=== PATIENT | male | born 1940 | race African-American/Black ===

== ENCOUNTER 2017-09-06 13:20 | Observation (INO) | payer MEDICARE, OTHER ==
[2017-09-06] MEDS ORDERED: NORMAL SALINE 1000 ML 1,000 ML IV ONE (13:58)
--- NOTE | 2017-09-06 13:59 | ER Document Report ---
ED Medical Screen (RME) - General Chief Complaint: Chest Pain > 30 Stated Complaint: CHEST PAIN Time Seen by Provider: 09/06/17 13:57 Notes: Patient states she was standing in his garage stating when he had the sudden onset of severe headache as well as chest pain. He also felt dizzy. He denies passing out or hitting his head. TRAVEL OUTSIDE OF THE [place] IN LAST 30 DAYS: No - Related Data Allergies/Adverse Reactions: No Known Allergies Allergy (Verified 09/06/17 13:21) Home Medications: Current Home Medications Cholecalciferol (Vitamin D3) [Vitamin D3 1000 Unit Tablet] 1 tab PO DAILY [History] Omeprazole Magnesium [Prilosec Otc] 1 tab PO DAILY 09/06/17 [History] Past Medical History - Social History Chew tobacco use (# tins/day): No Frequency of alcohol use: None Drug Abuse: None - Past Medical History Cardiac Medical History: Reports: Hx Hypertension - MEDICATED Denies: Hx Heart Attack Pulmonary Medical History: Denies: Hx Asthma Neurological Medical History: Denies: Hx Cerebrovascular Accident, Hx Seizures Renal/ Medical History: Reports: Hx Kidney Stones. Denies: Hx Peritoneal Dialysis GI Medical History: Reports: Hx Hiatal Hernia. Denies: Hx Hepatitis, Hx Ulcer Musculoskeltal Medical History: Reports Hx Arthritis Infectious Medical History: Denies: Hx Hepatitis Past Surgical History: Reports: Hx Appendectomy. Denies: Hx Open Heart Surgery , Hx Pacemaker - Immunizations Immunizations up to date: Yes Hx Diphtheria, Pertussis, Tetanus Vaccination: Yes Physical Exam - Vital signs Vitals: Temp Pulse Resp BP Pulse Ox 97.8 F 65 16 188/80 H 97 09/06/17 13:38 09/06/17 13:38 09/06/17 13:38 09/06/17 13:38 09/06/17 13:38 Course - Vital Signs Vital signs: Temp Pulse Resp BP Pulse Ox 97.8 F 65 16 188/80 H 97 09/06/17 13:38 09/06/17 13:38 09/06/17 13:38 09/06/17 13:38 09/06/17 13:38
--- NOTE | 2017-09-06 14:33 | RADIOLOGY REPORT (SQ) ---
EXAM DESCRIPTION: CT HEAD WITHOUT COMPLETED DATE/TIME: 09/06/2017 2:22 pm REASON FOR STUDY: bergeron COMPARISON: None. TECHNIQUE: Axial images acquired through the brain without intravenous contrast. Images reviewed wi th bone, brain and subdural windows. Images stored on PACS. All CT scanners at this facility use dose modulation, iterative reconstruction, and/or weight based d osing when appropriate to reduce radiation dose to as low as reasonably achievable (ALARA). [facility]: Dose Right [facility]: CareDose [facility]: Dose Right [facility]: Teradose 4D [facility]: [employer] RADIATION DOSE: CT Rad equipment meets quality standard of care and radiation dose reduction techniq ues were employed. CTDIvol: 64.6 mGy. DLP: 1163 mGy-cm. mGy. LIMITATIONS: None. FINDINGS: VENTRICLES: Normal size and contour. CEREBRUM: No masses. No hemorrhage. No midline shift. No evidence for acute infarction. Normal gra y/white matter differentiation. No areas of low density in the white matter. CEREBELLUM: No masses. No hemorrhage. No alteration of density. No evidence for acute infarction. EXTRAAXIAL SPACES: No fluid collections. No masses. ORBITS AND GLOBE: No intra- or extraconal masses. Normal contour of globe without masses. CALVARIUM: No fracture. PARANASAL SINUSES: No fluid or mucosal thickening. SOFT TISSUES: No mass or hematoma. OTHER: Heavily calcified parasellar carotid arteries IMPRESSION: NORMAL BRAIN CT WITHOUT CONTRAST. EVIDENCE OF ACUTE STROKE: NO. COMMENT: Quality ID # [id number]: Final reports with documentation of one or more dose reduction techniques (e.g., Automated exposure control, adjustment of the mA and/or kV according to patient size, use of iterative reconstruction technique) TECHNICAL DOCUMENTATION: JOB ID: [id number] [employer]- All Rights Reserved
--- NOTE | 2017-09-06 15:15 | EKG REPORT ---
SEVERITY:- ABNORMAL ECG - SINUS RHYTHM PROBABLE LEFT ATRIAL ABNORMALITY ABNORMAL T, CONSIDER ISCHEMIA, ANT-LAT LEADS : Confirmed by: Silverio Gallegos MD 06-Sep-2017 15:14:24
[2017-09-06 15:46] LABS: ABSOLUTE BASOPHILS # (AUTO) 0.1 10^3/uL (0.0-0.2); ABSOLUTE LYMPHOCYTES (AUTO) 1.3 10^3/uL (0.5-4.7); ABSOLUTE MONOCYTES (AUTO) 0.3 10^3/uL (0.1-1.4); ABSOLUTE NEUT (AUTO) 6.6 10^3/uL (1.7-8.2); BASOPHILS % (AUTO) 0.9 % (0-2); EOSINOPHILS % (AUTO) 0.6 % (0-6); HEMATOCRIT 41.1 % (37.9-51.0); HEMOGLOBIN 13.7 g/dL (13.5-17.0); LYMPHOCYTES % (AUTO) 15.9 % (13-45); MEAN CORPUSCULAR HEMOGLOBIN 30.1 pg (27.0-33.4); MEAN CORPUSCULAR HGB CONC 33.2 g/dL (32.0-36.0); MEAN CORPUSCULAR VOLUME 91 fl (80-97); RED BLOOD COUNT 4.53 10^6/uL (4.35-5.55); RED CELL DISTRIBUTION WIDTH 13.5 % (11.5-14.0); SEGMENTED NEUTROPHILS % (AUTO) 78.6 % (42-78); WHITE BLOOD COUNT 8.3 10^3/uL (4.0-10.5)
[2017-09-06 16:06] LABS: ALANINE AMINOTRANSFERASE 25 U/L (21-72); ALBUMIN 4.9 g/dL (3.5-5.0); ALKALINE PHOSPHATASE 88 U/L (38-126); ANION GAP 15 (5-19); ASPARTATE AMINO TRANSFERASE 19 U/L (17-59); BILIRUBIN,DIRECT 0.2 mg/dL (0.0-0.4); BLOOD UREA NITROGEN 15 mg/dL (7-20); CALCIUM 10.1 mg/dL (8.4-10.2); CARBON DIOXIDE 26 mmol/L (22-30); CHLORIDE 106 mmol/L (98-107); CREATININE RESULT 1.09 mg/dL (0.52-1.25); GLUCOSE 158 mg/dL (75-110); POTASSIUM 4.1 mmol/L (3.6-5.0); SODIUM 147.2 mmol/L (137-145); TOTAL PROTEIN 8.1 g/dL (6.3-8.2)
[2017-09-06] MEDS ORDERED: DIAZEPAM INJ 10 MG/2 ML DISP.SYRIN IV ONE (16:12)
--- NOTE | 2017-09-06 16:25 | ER Document Report ---
ED General - General Chief Complaint: Chest Pain > 30 Stated Complaint: CHEST PAIN Time Seen by Provider: 09/06/17 13:57 Mode of Arrival: Ambulatory Information source: Patient TRAVEL OUTSIDE OF THE [place] IN LAST 30 DAYS: No - HPI Patient complains to provider of: Head pain Onset: Just prior to arrival Onset/Duration: Sudden Quality of pain: Sharp Severity: Moderate Associated symptoms: Other - Dizziness Exacerbated by: Denies Relieved by: Denies Similar symptoms previously: No Recently seen / treated by doctor: No Notes: This 76-year-old -Italian male presents emergency department brought in by his for evaluation. She states that he was in his garage looking in the storage been for a tool when he got head pain on the right posterior part of his head and it began to swell. He states he did get dizzy at that time and did kneel down. He states he crawled into the house and rested for a few moments. He denies loss of consciousness. He states at that time his systolic blood pressure was over 200. He states normally he is normotensive when he takes his blood pressure medications. Not skipped any medications. He states the last few days it has been in the 180s. Patient quit tobacco in 1982 at the time he had a vocal cord surgery to remove what sounds like a polyp. States he also has a history of acid reflux for years. He also has hypercholesterolemia and had partial parathyroidectomy. - Related Data Allergies/Adverse Reactions: No Known Allergies Allergy (Verified 09/06/17 13:21) Home Medications: Current Home Medications Alprazolam [Xanax 0.5 mg Tablet] 0.5 mg PO 09/06/17 [History] Carvedilol [Coreg 25 mg Tablet] 25 mg PO Q12 09/06/17 [History] Cholecalciferol (Vitamin D3) [Vitamin D3 1000 Unit Tablet] 1,000 unit PO [History] Furosemide [Lasix 20 mg Tablet] 10 mg PO DAILY 09/06/17 [History] Latanoprost [Xalatan 0.005% Oph Soln 2.5 ml] 1 drop QHS 09/06/17 [History] Omeprazole 20 mg PO DAILY 09/06/17 [History] Pravastatin Sodium [Pravachol] 20 mg PO QHS 09/06/17 [History] Telmisartan [Micardis 80 mg Tablet] 80 mg PO DAILY 09/06/17 [History] Past Medical History - General Information source: Patient, Relative - Social History Smoking Status: Former Smoker Chew tobacco use (# tins/day): No Frequency of alcohol use: None Drug Abuse: None Lives with: Family Family History: CAD, Hyperlipidemia, Hypertension Patient has suicidal ideation: No Patient has homicidal ideation: No - Past Medical History Cardiac Medical History: Reports: Hx Hypertension - MEDICATED Denies: Hx Heart Attack Pulmonary Medical History: Denies: Hx Asthma Neurological Medical History: Denies: Hx Cerebrovascular Accident, Hx Seizures Endocrine Medical History: Reports: None Renal/ Medical History: Reports: Hx Kidney Stones. Denies: Hx Peritoneal Dialysis Malignancy Medical History: Reports None GI Medical History: Reports: Hx Gastroesophageal Reflux Disease, Hx Hiatal Hernia. Denies: Hx Hepatitis, Hx Ulcer Musculoskeltal Medical History: Reports Hx Arthritis Skin Medical History: Reports None Psychiatric Medical History: Reports: None Infectious Medical History: Denies: Hx Hepatitis Past Surgical History: Reports: Hx Appendectomy. Denies: Hx Open Heart Surgery , Hx Pacemaker - Immunizations Immunizations up to date: Yes Hx Diphtheria, Pertussis, Tetanus Vaccination: Yes Review of Systems - Review of Systems EENT: Double vision Cardiovascular: Other - Adamantly denies chest pain although it is noted in the triage note Respiratory: No symptoms reported Gastrointestinal: No symptoms reported Genitourinary: No symptoms reported Male Genitourinary: No symptoms reported Skin: No symptoms reported Hematologic/Lymphatic: No symptoms reported Neurological/Psychological: Other - he had pain at his scalp area. denies: Confusion, Dementia, Depression, Anxiety, Sensory change, Weakness, Loss of power, Paralysis, Seizure, Lost consciousness, Speech impairment, Numbness, Tingling, Tremor Physical Exam - Vital signs Vitals: Temp Pulse Resp BP Pulse Ox 97.8 F 65 16 188/80 H 97 09/06/17 13:38 09/06/17 13:38 09/06/17 13:38 09/06/17 13:38 09/06/17 13:38 - Notes Notes: PHYSICAL EXAMINATION: GENERAL: Well-appearing, well-nourished and in no acute distress. Lying comfortably in bed. HEAD: Right posterior occipital hematoma in the scalp-tender to touch. EYES: Pupils equal round and reactive to light, extraocular movements intact, sclera anicteric, conjunctiva are normal. ENT: Nares patent, oropharynx clear without exudates. Moist mucous membranes. NECK: Normal range of motion, supple without lymphadenopathy no carotid bruit LUNGS: Breath sounds clear to auscultation bilaterally and equal. No wheezes rales or rhonchi. HEART: Regular rate and rhythm without murmurs ABDOMEN: Soft, nontender, nondistended abdomen. No guarding, no rebound. No masses appreciated. Musculoskeletal: Normal range of motion, no pitting or edema. No cyanosis. NEUROLOGICAL: Cranial nerves grossly intact. Normal speech, normal gait. Normal sensory, motor exams. Normal proprioception, normal finger to nose, negative pronator drift. PSYCH: Normal mood, normal affect. SKIN: Warm, Dry, normal turgor, no rashes or lesions noted. Course - Re-evaluation Re-evalutation: 09/06/17 19:04 I have gone into the room multiple times to talk to the patient. He states that he still has a mild headache. The Valium did help a little bit. His blood pressure has come down somewhat. I am calling over to the [facility] to see if there is an old EKG that I can compare to these 2 EKGs with it. Patient again denies that he had chest pain with this episode. His states that he did complain of mild chest pain when she was driving him here for evaluation. Patient denies any current chest pain at this time 09/06/17 19:27 I did call over to the [facility] and they are faxing me an old EKG. 09/06/17 19:37 I did get the EKG shows T-wave inversions in the lateral leads as well as aVF and lead I there is no change in the 2 EKGs done today compared to the one done January 29, 2017 that I obtained from the [facility]. I await the troponin as the second troponin was hemolyzed and a new one was just drawn and sent. 09/06/17 20:29 I did talk to the admitting physician he is going to see the patient. I did go back and talk to the patient. He is adamant that he did not fall and hit his head. He states that he had a sharp pain on his head and at that point he felt it and there was a painful swollen area that was getting bigger. - Vital Signs Vital signs: Temp Pulse Resp BP Pulse Ox 97.8 F 68 15 169/75 H 99 09/06/17 13:38 09/06/17 15:00 09/06/17 20:31 09/06/17 20:31 09/06/17 20:31 - Laboratory Result Diagrams: 09/06/17 15:35 09/06/17 15:35 Laboratory results interpreted by me: 09/06/17 09/06/17 15:35 15:35 Seg Neutrophils % 78.6 H Sodium 147.2 H Glucose 158 H - Diagnostic Test Radiology reviewed: Image reviewed, Reports reviewed Radiology results interpreted by me: 09/06/17 19:05 No acute findings and chest x-ray - EKG Interpretation by Me EKG shows normal: Sinus rhythm Rate: Normal P Waves: Other - T-wave inversions in lead I aVL and lateral leads V4 through V6. No acute changes compared with EKG done January 29, 2017 at the [facility] When compared to previous EKG there are: No significant change - Compared with EKG I did obtain from the [facility] and it was done on January 29, 2017 it does show T-wave inversions in the lateral leads as well as lead I Additional EKG results interpreted by me: 09/06/17 19:37 EKG was also done 09/06/2017 at 1755. Showed sinus rhythm at 67 with again T- wave inversions in lead I, aVL, V4, V5 and V6 no acute ST elevations or depressions Discharge - Discharge Clinical Impression: Scalp hematoma, High blood pressure, Hypertensive urgency Disposition: ADMITTED OBSERVATION Admitting Provider: Hospitalist - Dr. Mckeon Unit Admitted: Telemetry
[2017-09-06] MEDS ORDERED: RINGERS SOLUTION,LACTATED 1,000 ML IV ONE (16:30)
--- NOTE | 2017-09-06 16:43 | RADIOLOGY REPORT (SQ) ---
EXAM DESCRIPTION: CHEST PA/LAT COMPLETED DATE/TIME: 09/06/2017 4:27 pm REASON FOR STUDY: near syncope COMPARISON: None. EXAM PARAMETERS: NUMBER OF VIEWS: two views TECHNIQUE: Digital Frontal and Lateral radiographic views of the chest acquired. RADIATION DOSE: NA LIMITATIONS: none FINDINGS: LUNGS AND PLEURA: No opacities, masses or pneumothorax. No pleural effusion. MEDIASTINUM AND HILAR STRUCTURES: No masses or contour abnormalities. HEART AND VASCULAR STRUCTURES: Heart normal size. No evidence for failure. BONES: No acute findings. HARDWARE: None in the chest. OTHER: No other significant finding. IMPRESSION: NO SIGNIFICANT RADIOGRAPHIC FINDING IN THE CHEST. TECHNICAL DOCUMENTATION: JOB ID: [id number] [employer]- All Rights Reserved
--- NOTE | 2017-09-06 19:37 | EKG REPORT ---
SEVERITY:- ABNORMAL ECG - SINUS RHYTHM FIRST DEGREE AV BLOCK PROBABLE LEFT ATRIAL ABNORMALITY ABNORMAL T, CONSIDER ISCHEMIA, ANT-LAT LEADS : Confirmed by: Silverio Gallegos MD 06-Sep-2017 19:36:08
[2017-09-06] MEDS ORDERED: HYDRALAZINE HCL INJ/PF 20 MG/1 ML SDV IV ONE (21:08)
[2017-09-06] MEDS ORDERED: HYDRALAZINE HCL INJ/PF 20 MG/1 ML SDV IV PRN (21:22)
[2017-09-06] MEDS ORDERED: ALPRAZOLAM 0.25 MG TABLET PO PRN (21:24)
[2017-09-06] MEDS ORDERED: MAG HYDROX/AL HYDROX/SIMETH SUSP 30 ML UDCUP PO PRN (21:24)
[2017-09-06] MEDS ORDERED: FUROSEMIDE INJ/PF 20 MG/2 ML SDV IV ONE (22:00)
[2017-09-06] MEDS ORDERED: LATANOPROST 0.005% OPH SOLN 2.5 ML OU SCH (22:00)
[2017-09-06] MEDS ORDERED: ATORVASTATIN CALCIUM 10 MG TABLET PO SCH ×2 (22:00)
[2017-09-06] MEDS: CARVEDILOL 12.5 MG TABLET PO SCH (22:23)
[2017-09-06] MEDS: HEPARIN SOD (PORCINE) 5,000 UNIT/ML 1 ML SYRINGE SUBCUT SCH (22:25)
[2017-09-06] MEDS ORDERED: TRAZODONE HCL 50 MG TABLET PO ONE (23:34)
[2017-09-07 01:53] LABS: CREATINE KINASE MB 2.38 ng/mL (<4.55); TROPONIN I 0.049 ng/mL
--- NOTE | 2017-09-07 02:16 | PDOC H&P ---
History of Present Illness Admission Date/PCP: 09/06/17 21:49 Patient complains of: Uncontrolled blood pressure, headache and chest pain History of Present Illness: KTAARINA LÓPEZ is a 76 year old male with past medical history of hypertension, GERD and anxiety. Who presents 30 minutes following an abrupt onset of right posterior headache associated with formation of scalp swelling which is subsequently returned to normal with residual pain to palpation. Patient was extremely anxious developing palpitations chest pain and shortness of breath prompting evaluation of his blood pressure resulting in 190/110. Patient comes to the emergency room for evaluation where he with exception to indeterminate troponin. Patient denies weakness, stiff neck, nausea or vomiting previous episode, recent change or missed medications. He is referred to the hospitalist for observation. Past Medical History Cardiac Medical History: Reports: Hypertension - MEDICATED Denies: Myocardial Infarction Pulmonary Medical History: Denies: Asthma Neurological Medical History: Denies: Seizures Endocrine Medical History: Reports: None Malignancy Medical History: Reports: None GI Medical History: Reports: Gastroesophageal Reflux Disease, Hiatal Hernia Denies: Hepatitis Musculoskeltal Medical History: Reports: Arthritis Skin Medical History: Reports: None Psychiatric Medical History: Reports: None Hematology: Denies: Anemia, Sickle Cell Disease Past Surgical History Past Surgical History: Reports: Appendectomy Denies: Pacemaker Social History Information Source: Patient Lives with: Family Smoking Status: Former Smoker Number of Years Smokin Last Time Smoked: 09/19/1982 Frequency of Alcohol Use: None Hx Recreational Drug Use: No Drugs: None Hx Prescription Drug Abuse: No - Advance Directive Resuscitation Status: Full Code Family History Family History: CAD, Hyperlipidemia, Hypertension Parental Family History Reviewed: Yes Children Family History Reviewed: Yes Sibling(s) Family History Reviewed.: Yes Medication/Allergy Home Medications: Aspirin [Ecotrin 81 mg EC Tablet] 81 mg PO DAILY 12/06/11 Febuxostat [Uloric 40 Mg Tablet] 40 mg PO Q48H 12/06/11 Alprazolam [Xanax 0.5 mg Tablet] 0.5 mg PO ASDIR PRN 09/06/17 Carvedilol [Coreg 25 mg Tablet] 25 mg PO Q12 09/06/17 Cholecalciferol (Vitamin D3) [Vitamin D3 1000 Unit Tablet] 1,000 unit PO DAILY 09/06/17 Diltiazem HCl [Tiazac] 240 mg PO DAILY 09/06/17 Furosemide [Lasix 20 mg Tablet] 10 mg PO DAILY 09/06/17 Latanoprost [Xalatan 0.005% Oph Soln 2.5 ml] 1 drop OU QHS 09/06/17 Loratadine [Claritin 10 mg Tablet] 10 mg PO DAILY 09/06/17 Omeprazole 20 mg PO DAILY 09/06/17 Pravastatin Sodium [Pravachol] 20 mg PO QHS 09/06/17 Telmisartan [Micardis 80 mg Tablet] 80 mg PO DAILY 09/06/17 Allergies/Adverse Reactions: No Known Allergies Allergy (Verified 09/06/17 13:21) Review of Systems Constitutional: ABSENT: chills, fever(s), headache(s), weight gain, weight loss Eyes: ABSENT: visual disturbances Ears: ABSENT: hearing changes Cardiovascular: ABSENT: chest pain, dyspnea on exertion, edema, orthropnea, palpitations Respiratory: ABSENT: cough, hemoptysis Gastrointestinal: ABSENT: abdominal pain, constipation, diarrhea, hematemesis, hematochezia, nausea, vomiting Genitourinary: ABSENT: dysuria, hematuria Musculoskeletal: ABSENT: joint swelling Integumentary: ABSENT: rash, wounds Neurological: ABSENT: abnormal gait, abnormal speech, confusion, dizziness, focal weakness, syncope Psychiatric: ABSENT: anxiety, depression, homidical ideation, suicidal ideation Endocrine: ABSENT: cold intolerance, heat intolerance, polydipsia, polyuria Hematologic/Lymphatic: ABSENT: easy bleeding, easy bruising Physical Exam Vital Signs: Temp Pulse Resp BP Pulse Ox 98.4 F 73 18 166/61 H 99 09/06/17 23:00 09/06/17 23:00 09/06/17 23:00 09/06/17 23:00 09/06/17 23:00 Intake & Output 09/05/17 09/06/17 09/07/17 11:59 11:59 11:59 Weight 82 kg General appearance: PRESENT: no acute distress, well-developed, well-nourished Head exam: PRESENT: atraumatic, normocephalic Eye exam: PRESENT: conjunctiva pink, EOMI, PERRLA. ABSENT: scleral icterus Ear exam: PRESENT: normal external ear exam Mouth exam: PRESENT: moist, tongue midline Neck exam: ABSENT: carotid bruit, JVD, lymphadenopathy, thyromegaly Respiratory exam: PRESENT: clear to auscultation kaveh. ABSENT: rales, rhonchi, wheezes Cardiovascular exam: PRESENT: RRR. ABSENT: diastolic murmur, rubs, systolic murmur Pulses: PRESENT: normal dorsalis pedis pul Vascular exam: PRESENT: normal capillary refill GI/Abdominal exam: PRESENT: normal bowel sounds, soft. ABSENT: distended, guarding, mass, organolmegaly, rebound, tenderness Rectal exam: PRESENT: deferred Extremities exam: PRESENT: full ROM. ABSENT: calf tenderness, clubbing, pedal edema Neurological exam: PRESENT: alert, awake, oriented to person, oriented to place , oriented to time, oriented to situation, CN II-XII grossly intact. ABSENT: motor sensory deficit Psychiatric exam: PRESENT: appropriate affect, normal mood. ABSENT: homicidal ideation, suicidal ideation Skin exam: PRESENT: dry, intact, warm. ABSENT: cyanosis, rash Results Laboratory Results: 09/07/17 01:18 CK-MB (CK-2) 2.38 Troponin I 0.049 Impressions: Head CT 09/06/17 13:58 IMPRESSION: NORMAL BRAIN CT WITHOUT CONTRAST. EVIDENCE OF ACUTE STROKE: NO. Chest X-Ray 09/06/17 16:04 IMPRESSION: NO SIGNIFICANT RADIOGRAPHIC FINDING IN THE CHEST. Assessment & Plan - Diagnosis (1) Hypertensive urgency Is this a current diagnosis for this admission?: Yes Plan: Telemetry monitoring, hydralazine and Lasix trial. Patient is notably anxious and will receive anxiolytics as needed. (2) Scalp hematoma Is this a current diagnosis for this admission?: Yes Plan: Spontaneous occurrence without trauma or previous history. CT imaging unremarkable no evidence for skull fracture or hematoma formation, symptomatic management (3) Anxiety Is this a current diagnosis for this admission?: Yes Plan: Reassurance, home dose of Xanax and trazodone as needed - Time Time Spent: 30 to 50 Minutes
[2017-09-07] MEDS: HEPARIN SOD (PORCINE) 5,000 UNIT/ML 1 ML SYRINGE SUBCUT SCH (05:54)
[2017-09-07 07:19] LABS: CHOLESTEROL 168.57 mg/dL (0-200); CREATINE KINASE 179 U/L (55-170); Direct HDL 43 mg/dL (>40); TRIGLYCERIDES 108 mg/dL (<150)
[2017-09-07 07:30] LABS: DIRECT LDL 104 mg/dL (<100)
[2017-09-07 07:31] LABS: CREATINE KINASE MB 1.83 ng/mL (<4.55); TROPONIN I 0.05 ng/mL
[2017-09-07] MEDS: CARVEDILOL 12.5 MG TABLET PO SCH (09:02)
[2017-09-07] MEDS ORDERED: (PENDING PHARMACY ID) (Telmisartan [Micardis 80 Mg Tablet] 80 MG) PO SCH (10:00)
[2017-09-07] MEDS ORDERED: ASPIRIN 81 MG TABLET, ENT COATED PO SCH (10:00)
[2017-09-07] MEDS ORDERED: DOCUSATE SODIUM 100 MG CAPSULE PO SCH (10:00)
[2017-09-07] MEDS ORDERED: LANSOPRAZOLE 15 MG TAB.RAP.DR PO SCH (10:00)
[2017-09-07] MEDS ORDERED: LOSARTAN POTASSIUM 50 MG TABLET PO SCH (10:00)
--- NOTE | 2017-09-07 12:07 | PDOC DISCHARGE SUMMARY ---
General - Admit/Disc Date/PCP Admission Date/Primary Care Provider: 09/06/17 21:49 Discharge Date: 09/07/17 - Discharge Diagnosis (1) Hypertensive urgency Is this a current diagnosis for this admission?: Yes (3) Anxiety Is this a current diagnosis for this admission?: Yes (4) Scalp hematoma Is this a current diagnosis for this admission?: Yes Summary: Spontaneously resolved prior to emergency department intake. - Additional Information Resuscitation Status: Full Code Discharge Diet: Cardiac Discharge Activity: Activity As Tolerated, Balance Activity w/Rest Home Medications: Aspirin [Ecotrin 81 mg EC Tablet] 81 mg PO DAILY 12/06/11 Febuxostat [Uloric 40 mg Tablet] 40 mg PO Q48H 12/06/11 Alprazolam [Xanax 0.5 mg Tablet] 0.5 mg PO ASDIR PRN 09/06/17 Carvedilol [Coreg 25 mg Tablet] 25 mg PO Q12 09/06/17 Cholecalciferol (Vitamin D3) [Vitamin D3 1000 Unit Tablet] 1,000 unit PO DAILY 09/06/17 Diltiazem HCl [Tiazac] 240 mg PO DAILY 09/06/17 Furosemide [Lasix 20 mg Tablet] 10 mg PO DAILY 09/06/17 Latanoprost [Xalatan 0.005% Oph Soln 2.5 ml] 1 drop OU QHS 09/06/17 Loratadine [Claritin 10 mg Tablet] 10 mg PO DAILY 09/06/17 Omeprazole 20 mg PO DAILY 09/06/17 Pravastatin Sodium [Pravachol] 20 mg PO QHS 09/06/17 Telmisartan [Micardis 80 mg Tablet] 80 mg PO DAILY 09/06/17 History of Present Illness History of Present Illness: Per H&P by Dr. Mckeon: KATARINA LÓPEZ is a 76 year old male with past medical history of hypertension, GERD and anxiety. Who presents 30 minutes following an abrupt onset of right posterior headache associated with formation of scalp swelling which is subsequently returned to normal with residual pain to palpation. Patient was extremely anxious developing palpitations chest pain and shortness of breath prompting evaluation of his blood pressure resulting in 194/110. Patient comes to the emergency room for evaluation where he with exception of indeterminate troponin. Patient denies weakness, stiff neck, nausea or vomiting previous episode, recent change or missed medications. He is referred to the hospitalist for observation. Hospital Course Hospital Course: The patient was admitted overnight for observation and treatment of his hypertensive urgency. He was treated with hydralazine and Lasix. His blood pressures improved along with resolution of his headache, palpitations, and shortness of breath. Laboratory evaluation and CT imaging were unremarkable. The patient was reassured and provided his home dosing of Xanax and trazodone. On morning of discharge, the patient reports that he is feeling in "fine health. " He is discharged to home with self care and recommendations for follow-up with his primary care provider within 1-2 weeks. Physical Exam Vital Signs: Temp Pulse Resp BP Pulse Ox 98.4 F 71 20 159/71 H 100 09/07/17 11:52 09/07/17 11:52 09/07/17 11:52 09/07/17 11:52 09/07/17 11:52 Intake & Output 09/06/17 09/07/17 09/08/17 06:59 06:59 06:59 Intake Total 0 Output Total 1000 Balance -1000 Weight 82 kg General appearance: PRESENT: no acute distress, well-developed, well-nourished Head exam: PRESENT: atraumatic, normocephalic Eye exam: PRESENT: conjunctiva pink, EOMI, PERRLA. ABSENT: scleral icterus Ear exam: PRESENT: normal external ear exam Mouth exam: PRESENT: moist, tongue midline Neck exam: ABSENT: carotid bruit, JVD, lymphadenopathy, thyromegaly Respiratory exam: PRESENT: clear to auscultation kaveh. ABSENT: rales, rhonchi, wheezes Cardiovascular exam: PRESENT: RRR. ABSENT: diastolic murmur, rubs, systolic murmur Pulses: PRESENT: normal dorsalis pedis pul Vascular exam: PRESENT: normal capillary refill GI/Abdominal exam: PRESENT: normal bowel sounds, soft. ABSENT: distended, guarding, mass, organolmegaly, rebound, tenderness Rectal exam: PRESENT: deferred Extremities exam: PRESENT: full ROM. ABSENT: calf tenderness, clubbing, pedal edema Neurological exam: PRESENT: alert, awake, oriented to person, oriented to place , oriented to time, oriented to situation, CN II-XII grossly intact. ABSENT: motor sensory deficit Psychiatric exam: PRESENT: appropriate affect, normal mood. ABSENT: homicidal ideation, suicidal ideation Skin exam: PRESENT: dry, intact, warm. ABSENT: cyanosis, rash Results Laboratory Results: 09/07/17 06:59 Triglycerides 108 Cholesterol 168.57 LDL Cholesterol Direct 104 H VLDL Cholesterol 22.0 HDL Cholesterol 43 09/07/17 09/07/17 09/07/17 01:18 06:59 06:59 Creatine Kinase 179 H CK-MB (CK-2) 2.38 1.83 Troponin I 0.049 0.050 Impressions: Head CT 09/06/17 13:58 IMPRESSION: NORMAL BRAIN CT WITHOUT CONTRAST. EVIDENCE OF ACUTE STROKE: NO. Chest X-Ray 09/06/17 16:04 IMPRESSION: NO SIGNIFICANT RADIOGRAPHIC FINDING IN THE CHEST. Qualifiers PATEINT BEING DISCHARGED WITH ANY OF THE FOLLOWING DIAGNOSIS?: No
[2017-09-07 14:01] LABS: CREATINE KINASE MB 1.72 ng/mL (<4.55); TROPONIN I 0.049 ng/mL
[2017-09-07 14:07] VITALS: BP 188/80
== END 2017-09-07 14:43 | disposition home or self-care (01) ==
LOC: ER 13:20 → EH 21:49 → 4S 22:59
PROVIDERS: ADMIT Internal Medicine; ATTEND Internal Medicine
DX: I16.0 Hypertensive urgency (principal); F41.9 Anxiety disorder, unspecified; S00.03XA Contusion of scalp, initial encounter; X58.XXXA Exposure to other specified factors, initial encounter; K21.9 Gastro-esophageal reflux disease without esophagitis; I25.2 Old myocardial infarction; Z79.82 Long term (current) use of aspirin; Z79.899 Other long term (current) drug therapy; Z90.49 Acquired absence of other specified parts of digestive tract; Z82.49 Family history of ischemic heart disease and other diseases of the circulatory system; Z87.891 Personal history of nicotine dependence
CPT/HCPCS: 93005; 99285; 96372; 96361; 96375; 96365; 36415 ×2; 82553; 82550; 84443; 85025; 80053; 84484 ×2; 83036; 80061; 71020; 70450; 93010; G0378 ×3; A9270 ×8; J1644 ×2; J3360; J1940; J0360; J3490 ×3; J7030; J7120

== ENCOUNTER → 2018-02-08 | Outpatient (CLI) | payer MEDICARE, OTHER ==
--- NOTE | 2018-02-08 12:56 | RADIOLOGY REPORT (SQ) ---
EXAM DESCRIPTION: [facility] DUPLEX ART/ISHAN FLOW COMPLETED DATE/TIME: 02/08/2018 10:33 am REASON FOR STUDY: HTN (I10), RENAL INSUFFICIENCY (N28.9), TYPE 2 DIABETES (E11.9) N28.9 DISORDER OF KIDNEY AND URETER, UNSPECIFIED I10 ESSENTIAL (PRIMARY) HYPERTENSION E11.9 TYPE 2 DIABETES MELLITUS WITHOUT COMPLICATIONS COMPARISON: CT abdomen pelvis 05/25/2013 TECHNIQUE: Realtime and static grayscale images acquired. Selected color Doppler, velocities and spe ctral images recorded. LIMITATIONS: Renal artery origins at the abdominal aorta are difficult to visualize due to midline b owel gas. FINDINGS: RIGHT KIDNEY: RENAL ARTERY VELOCITIES: 63 cm/sec. Segmental artery velocity 35 cm/sec. RENAL VEIN: Color doppler flow present, patent. VELOCITY RATIO: 0.5. Normal waveforms. KIDNEY: Right kidney is 10 cm in length, with a 1.7 cm upper pole and 4 cm lower pole simple cyst. No significant pathology. LEFT KIDNEY: RENAL ARTERY VELOCITIES: 60 cm/sec. Segmental artery velocity 35 cm/sec. RENAL VEIN: Color doppler flow present, patent. VELOCITY RATIO: 0.46. Normal waveforms. KIDNEY: Left kidney is 10.8 cm in length with a 3.6 cm lower pole simple cyst. No significant path ology. BLADDER: Decompressed not well seen OTHER: No other significant finding. IMPRESSION: NO DOPPLER EVIDENCE OF HEMODYNAMICALLY SIGNIFICANT RENAL ARTERY STENOSIS. COMMENT: NORMAL RENAL ARTERY/AORTA VELOCITY RATIO IS LESS THAN OR EQUAL TO 3.5. TECHNICAL DOCUMENTATION: JOB ID: [id number] [employer]- All Rights Reserved Reading location - IP/workstation name: [email or web address]
== END ==
LOC: RAD 09:09
PROVIDERS: ATTEND Internal Medicine Nephrology
DX: I10 Essential (primary) hypertension (principal); N28.9 Disorder of kidney and ureter, unspecified; E11.9 Type 2 diabetes mellitus without complications
CPT/HCPCS: 93976